=== PATIENT | female | born 1975 | race Caucasian/White ===

== ENCOUNTER 2021-03-19 12:52 | Emergency (ER) | payer OTHER, MEDICAID ==
[~2021-03-19] VITALS: Ht 144.8 cm; Wt 63.1 kg
[2021-03-19 12:53] VITALS: BP 129/73
[2021-03-19] MEDS ORDERED: ACETAMINOPHEN 325 MG TAB PO ONE (15:00)
--- NOTE | 2021-03-19 15:31 | REP ---
INDICATION: head injury; moderate pain/ski inury COMPARISON: None. TECHNIQUE: Axial noncontrast images from the skull base to the vertex with coronal reformations. This CT examination was performed using the following dose reduction techniques: Automated exposure control, adjustment of mA and/or kv according to the patient's size, and use of iterative reconstruction technique. FINDINGS: The ventricles, sulci, and cisterns are normal in position and appearance. Lechuga-white differentiation is maintained. No acute intracranial hemorrhage, mass/mass effect, pathology or trauma/injury. No evidence for acute infarction. No extra-axial fluid collection. Calvarium is intact. Paranasal sinuses and mastoid air cells are clear. IMPRESSION: Normal noncontrast head CT. No evidence for acute intracranial pathology or trauma/injury. <Electronically signed by Tello Ospina > 03/19/21 [id number]
== END 2021-03-19 17:32 | disposition home or self-care (01) ==
LOC: M ED 12:52
DX: S00.93XA Contusion of unspecified part of head, initial encounter (principal); W01.198A Fall on same level from slipping, tripping and stumbling with subsequent striking against other object, initial encounter; Y92.89 Other specified places as the place of occurrence of the external cause; Y93.9 Activity, unspecified; Y99.9 Unspecified external cause status